=== PATIENT | female | born 1980 | race Caucasian/White ===

== ENCOUNTER 2022-01-03 15:40 | Emergency (ER) | payer OTHER ==
[2022-01-03 16:07] VITALS: BP 139/83; PULSE 67; RESP 18; TEMP 98.3; BMI 29.2
== END 2022-01-03 19:52 | disposition home or self-care (01) ==
LOC: JER 15:40
DX: R05.1 Acute cough (principal); R09.81 Nasal congestion
CPT/HCPCS: 71046-TC-FY; 99283-25

== ENCOUNTER 2022-08-06 00:17 | Emergency (ER) | payer OTHER ==
[2022-08-06 00:25] VITALS: BP 166/82; PULSE 71; RESP 18; TEMP 98.3; BMI 37.3
[2022-08-06] MEDS ORDERED: LIDOCAINE 5% TOPICAL PATCH TP ONE (01:56)
[2022-08-06] MEDS ORDERED: LIDOCAINE 5% TOPICAL PATCH ONE (02:10)
[2022-08-06 02:34] LABS: BASO % 1.5 % (0-2.0); EOS % 1.1 % (0-4.5); HEMATOCRIT 37.8 % (32.4-45.2); HEMOGLOBIN 13.5 GM/dL (10.7-15.3); LYMPH % 29.4 % (8-40); MCH 32.4 pg (25.7-33.7); MCHC 35.8 g/dl (32.0-36.0); MEAN CELL VOLUME 90.5 fl (80-96); MONO % 10.4 % (3.8-10.2); NEUT % 57.6 % (42.8-82.8); PLATELET COUNT 227 10^3/uL (134-434); RBC 4.18 M/mm3 (3.60-5.2); RDW 12.7 % (11.6-15.6); WHITE BLOOD COUNT 7.9 K/mm3 (4.0-10.0)
[2022-08-06 02:35] LABS: URINE APPEARANCE CLEAR; URINE BILIRUBIN NEGATIVE (NEGATIVE); URINE COLOR YELLOW; URINE GLUCOSE (UA) NEGATIVE (NEGATIVE); URINE KETONE NEGATIVE (NEGATIVE); URINE LEUK ESTERASE NEGATIVE (NEGATIVE); URINE NITRITE NEGATIVE (NEGATIVE); URINE PROTEIN NEGATIVE (NEGATIVE); URINE UROBILINOGEN 0.2 mg/dL (0.2-1.0)
[2022-08-06 02:55] LABS: CALCIUM 9.5 mg/dL (8.5-10.1)
[2022-08-06 02:56] LABS: ALBUMIN 3.6 g/dl (3.4-5.0); BLOOD UREA NITROGEN 12.6 mg/dL (7-18)
[2022-08-06 02:59] LABS: CREATININE 0.9 mg/dL (0.55-1.3)
[2022-08-06 03:01] LABS: BILIRUBIN,TOTAL 0.2 mg/dL (0.2-1)
[2022-08-06] MEDS ORDERED: LIDOCAINE PATCH REMOVAL MC SCH (22:00)
== END 2022-08-06 03:56 | disposition home or self-care (01) ==
LOC: JER 00:17
DX: O26.891 Other specified pregnancy related conditions, first trimester (principal); M54.31 Sciatica, right side; Z3A.08 8 weeks gestation of pregnancy
CPT/HCPCS: 36415; 76817-TC; 80053; 81003; 82962; 84702; 85025; 87086; 87186; 99284-25

== ENCOUNTER 2024-09-18 11:57 | Emergency (ER) | payer OTHER ==
[2024-09-18 12:09] VITALS: BP 154/98; PULSE 69; RESP 19; TEMP 98.2; BMI 33.7
[2024-09-18 15:07] LABS: HCV DIAGNOSTIC IN-HOUSE W/RFLX NON-REACTIVE (NONREACTIVE)
[2024-09-18 15:08] LABS: HIV INTERPRETATION NEGATIVE (NEGATIVE)
== END 2024-09-18 13:35 | disposition home or self-care (01) ==
LOC: JERFT 11:57
DX: L30.9 Dermatitis, unspecified (principal); R21 Rash and other nonspecific skin eruption
CPT/HCPCS: 36415; 86803; 87389; 99283-25

== ENCOUNTER 2024-09-21 16:45 | Emergency (ER) | payer OTHER ==
[2024-09-21 17:01] VITALS: BMI 37.3
[2024-09-21] MEDS ORDERED: ACETAMINOPHEN INJECTION 100 ML ONE (18:30)
[2024-09-21] MEDS ORDERED: METOCLOPRAMIDE HCL INJECTION 10 MG/2 ML VIAL ONE (18:30)
[2024-09-21] MEDS ORDERED: MAGNESIUM SULFATE IN WATER 2 GM/50 ML IVPB IVPB ONE (18:40)
[2024-09-21] MEDS: METOCLOPRAMIDE HCL INJECTION 10 MG/2 ML VIAL IVPB ONE (18:50)
[2024-09-21] MEDS: SODIUM CHLORIDE 0.9% 500 ML INFUS.BAG IV ONE (18:50)
[2024-09-21] MEDS: ACETAMINOPHEN 1000 MG/100 ML BAG IVPB ONE (18:50)
[2024-09-21 18:51] LABS: ABSOLUTE IMMATURE GRANULOCYTES 0.01 x10^3/uL (0.0-0.031); BASOPHILS # 0.02 x10^3/uL (0.01-0.08); EOSINOPHIL % 4.7 % (0.7-5.8); HEMATOCRIT 38.7 % (34.1-44.9); HEMOGLOBIN 13.2 g/dL (11.2-15.7); MCHC 34.1 g/dl (32.2-35.5); MEAN CELL VOLUME 92.8 fl (79.4-94.8); MEAN PLT VOLUME 10.5 fl (9.4-12.3); MONOCYTE # 0.65 x10^3/uL (0.24-0.86); MONOCYTE % 10.2 % (4.7-12.5); PLATELET COUNT 232 x10^3/uL (182-369); RDW 12.2 % (12.2-17.1)
[2024-09-21] MEDS: MAGNESIUM SULFATE IN WATER 2 GM/50 ML IVPB IVPB ONE (19:27)
[2024-09-21 19:31] LABS: ERYTHROCYTE SEDIMENTATION RATE 7 mm/hr (0-20)
[2024-09-21 20:13] LABS: POTASSIUM 4.4 mmol/L (3.5-5.1)
[2024-09-21 20:15] LABS: ALBUMIN 3.4 g/dl (3.4-5.0); CALCIUM 9.4 mg/dL (8.5-10.1)
[2024-09-21 20:20] LABS: BILIRUBIN,TOTAL 0.2 mg/dL (0.2-1); TOT PROT 6.4 g/dl (6.4-8.2)
[2024-09-21 21:48] VITALS: BP 145/87; PULSE 61; RESP 17; TEMP 98.2
== END 2024-09-21 22:46 | disposition home or self-care (01) ==
LOC: JER 16:45
PROC: 3E033GC Introduction of Other Therapeutic Substance into Peripheral Vein, Percutaneous Approach (ICD-10-PCS; principal; 2024-09-21)
PROC: 3E033NZ Introduction of Analgesics, Hypnotics, Sedatives into Peripheral Vein, Percutaneous Approach (ICD-10-PCS; 2024-09-21)
PROC: 3E033GC Introduction of Other Therapeutic Substance into Peripheral Vein, Percutaneous Approach (ICD-10-PCS; 2024-09-21)
DX: R22.0 Localized swelling, mass and lump, head (principal)
CPT/HCPCS: 36415; 70450-TC; 70460-TC; 70487-TC; 70491-TC; 80053; 84703; 85025; 85651; 86140; 99285-25; Q9967